=== PATIENT | male | born 1975 | race Caucasian/White ===

== ENCOUNTER 2020-02-09 10:44 | Emergency (ER) | payer OTHER ==
[~2020-02-09] VITALS: Ht 182.9 cm; Wt 72.0 kg
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
[2020-02-09 12:03] LABS: BASOPHILS 0.8 % (0.0-2.0); EOSINOPHILS 0.5 % (0.0-3.0); HEMOGLOBIN 15.3 gm/dL (14.0-18.0); LYMPHOCYTES 8.5 % (24.0-44.0); MCH 29.5 pg (26.0-34.0); MCHC 33.2 g/dL (28.0-37.0); MCV 88.8 fL (80.0-100.0); MONOCYTES 5.5 % (1.0-8.0); PLATELET COUNT 322 thou/uL (150-400); POLYS 84.7 % (36.0-66.0); RBC 5.18 mil/uL (4.50-6.00); RDW 13.1 % (10.5-14.5); WBC 9.4 thou/uL (4.0-11.0)
[2020-02-09 12:08] LABS: ANION GAP 12 mmol/L (7-16); BUN 18 mg/dL (7-18); CALCIUM 9.3 mg/dL (8.5-10.1); CHLORIDE 105 mmol/L (98-107); CO2 25 mmol/L (21-32); CREATININE 1.1 mg/dL (0.7-1.3); GLUCOSE 94 mg/dL (74-106); POTASSIUM 4.1 mmol/L (3.5-5.1); SODIUM 142 mmol/L (136-145)
[2020-02-09 12:15] LABS: TROPONIN-I <0.06 ng/mL (<0.06)
[2020-02-09 13:49] LABS: AMP/METHAMP POSITIVE (Negative); BARBITURATES Negative (Negative); BENZODIAZEPINES Negative (Negative); COCAINE Negative (Negative); METHADONE Negative (Negative); OPIATES Negative (Negative); PCP Negative (Negative)
[2020-02-09 14:11] VITALS: BP 110/96
--- NOTE | 2020-02-11 07:42 | EKG ---
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
== END 2020-02-09 14:17 ==
LOC: ER 10:44
PROVIDERS: Nurse Practitioner
DX: F15.10 Other stimulant abuse, uncomplicated (principal); M54.2 Cervicalgia; M25.531 Pain in right wrist; F17.210 Nicotine dependence, cigarettes, uncomplicated; Z88.8 Allergy status to other drugs, medicaments and biological substances